=== PATIENT | male | born 1960 | race Two or more races ===

== ENCOUNTER 2022-06-22 06:38 | Day surgery (SDC) | payer OTHER ==
[2022-06-21 15:45] VITALS: BMI 27.8
[2022-06-22] MEDS ORDERED: MIDAZOLAM HCL 2 MG/2 ML SINGLE DOSE VIAL ONE (13:47)
[2022-06-22] MEDS ORDERED: PROPOFOL 20 ML ONE (13:51)
[2022-06-22] MEDS ORDERED: LIDOCAINE HCL 2% JELLY 10 ML CARTRIDGE ONE (14:22)
[2022-06-22] MEDS ORDERED: ONDANSETRON 4 MG/2 ML VIAL IVPUSH PRN (14:44)
[2022-06-22] MEDS ORDERED: oxyCODONE HCL 5 MG TABLET PO PRN ×2 (14:44)
[2022-06-22] MEDS ORDERED: LACTATED RINGERS SOLUTION 1,000 ML IV SCH (14:45)
[2022-06-22 16:28] VITALS: RESP 18
[2022-06-22 17:02] VITALS: BP 115/71; PULSE 76; TEMP 98.2
== END 2022-06-22 17:14 | disposition home or self-care (01) ==
LOC: JASU-SURG 06:38
PROVIDERS: ATTEND Urology
PROC: 0T7D8DZ Dilation of Urethra with Intraluminal Device, Via Natural or Artificial Opening Endoscopic (ICD-10-PCS; principal; 2022-06-22 14:04)
DX: N40.1 Benign prostatic hyperplasia with lower urinary tract symptoms (principal); R33.8 Other retention of urine
CPT/HCPCS: C9740; L8699; 94760